=== PATIENT | male | born 1955 | race Two or more races ===

== ENCOUNTER 2016-05-05 12:40 | Emergency (ER) | payer OTHER ==
[2016-05-05 13:42] LABS: ABSOLUTE NEUTROPHIL COUNT 6.6 K/mm3 (1.8-7.7); BASO # 0.1 K/mm3 (0.0-0.2); BASO % 0.7 % (0.2-1.0); EOS # 0.5 (0.0-0.5); EOS % 5.2 % (0.9-2.9); HEMATOCRIT 43.5 % (32.0-52.0); HEMOGLOBIN 13.7 gm/l (14.0-18.0); IMM NEUT% 0.2 % (0-1); LYMPH # 1.2 (1.0-4.8); LYMPH % 13.5 % (15-45); MEAN CELL VOLUME 90.4 fl (80.0-94.0); MEAN CORPUSCULAR HEMOGLOBIN 28.5 pg (27.0-31.0); MEAN CORPUSCULAR HGB CONC 31.5 g/dl (33.0-37.0); MEAN PLATELET VOLUME 11.7 fl (7.4-10.4); MONO # 0.5 (0.0-0.8); MONO % 5.9 % (4-12); NEUT % 74.5 % (43-75); PLATELET COUNT 158 K/mm3 (130-400); RED CELL DISTRIBUTION WIDTH 13.7 % (11.5-14.5)
--- NOTE | 2016-05-05 14:12 | RAD ---
05/05/2016 2:06 PM CHEST-AP BEDSIDE History: Chest pain. Comparison: 05/11/2015 Findings: Single AP view of the chest is obtained. The lungs demonstrates prominence to the interstitium which could relate to venous congestion. No focal airspace disease or effusion. The cardiomediastinal silhouette is unremarkable.. The osseous structures are intact.. IMPRESSION: Interstitial prominence which could relate to venous congestion. No evidence of edema is present, however.
[2016-05-05 14:14] LABS: ALB/GLOB RATIO 1.1 (>1.0); CALCIUM 9.3 mg/dL (8.6-10.3)
[2016-05-05 14:17] LABS: TROPONIN I 0.01 ng/ml (0.0-0.06)
[2016-05-05 14:20] LABS: CKMB ISOENZYME 6.1 ng/ml (0.6-6.3)
[2016-05-05] MEDS ORDERED: ALBUTEROL/IPRATROPIUM 2.5/0.5 MG 3 ML/EACH DOSE ONE (14:36)
[2016-05-05] MEDS ORDERED: DIPHTH,PERTUSS(ACELL),TET VAC 0.5 ML VIAL IM V ONE (15:55)
== END 2016-05-05 16:41 | disposition home or self-care (01) ==
LOC: ED 12:40
DX: S61.012A Laceration without foreign body of left thumb without damage to nail, initial encounter (principal); L97.229 Non-pressure chronic ulcer of left calf with unspecified severity; I25.10 Atherosclerotic heart disease of native coronary artery without angina pectoris; F17.210 Nicotine dependence, cigarettes, uncomplicated; E78.5 Hyperlipidemia, unspecified; E78.00 Pure hypercholesterolemia, unspecified; I50.9 Heart failure, unspecified; J44.9 Chronic obstructive pulmonary disease, unspecified; W31.89XA Contact with other specified machinery, initial encounter; Y93.G1 Activity, food preparation and clean up